=== PATIENT | male | born 1985 ===

== ENCOUNTER 2019-11-14 04:59 | Day surgery (SDC) | payer OTHER ==
[2019-11-12 09:01] VITALS: BMI 38.0
[2019-11-14 09:38] VITALS: TEMP 97.5
[2019-11-14 10:26] VITALS: BP 110/61; PULSE 67
--- NOTE | 2019-11-17 17:22 | PATH ---
Surgical Pathology Report Patient Name: CASH BURGESS [facility] [place]. Rec. #: [id number] /Age/Gender: 1985 (Age: 34) / M Account: [id number] Location: U-ENDOSCOPY Taken: 11/14/2019 Received: 11/14/2019 Reported: 11/17/2019 Physicians: Karri Gonzalez M.D. Specimen(s) Received DESCENDING COLON POLYP Clinical History Blood in stool Postoperative diagnosis: Polyps, hemorrhoids Final Diagnosis DESCENDING COLON, POLYP, BIOPSY: HYPERPLASTIC POLYP. Electronically Signed Margie Alonso M.D. Gross Description Received in formalin, labeled "biopsy descending colon polyp" are 5 sr, irregular portions of soft tissue ranging from 0.2-0.4 cm. in greatest dimension. The specimens are submitted in toto in one cassette. /11/14/2019 saudi11/14/2019
== END 2019-11-14 10:24 | disposition home or self-care (01) ==
LOC: JASU-ENDO 04:59
PROVIDERS: ATTEND Internal Medicine Gastroenterology
PROC: 0DBM8ZX Excision of Descending Colon, Via Natural or Artificial Opening Endoscopic, Diagnostic (ICD-10-PCS; principal; 2019-11-14 09:00)
DX: K62.5 Hemorrhage of anus and rectum (principal); D12.4 Benign neoplasm of descending colon; K64.8 Other hemorrhoids
CPT/HCPCS: 88305-TC